=== PATIENT | female | born 2000 | race Caucasian/White ===

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

== ENCOUNTER 2020-08-19 17:24 | Inpatient (IN) | payer BC ==
[~2020-08-19] VITALS: Ht 154.9 cm; Wt 68.0 kg
[~2020-08-19 17:24] MED LIST changes: -OMNIPAQUE 350 MG/ML, 100ML BOTTLE ONE
--- NOTE | 2020-08-19 17:38 | NUR ---
PT AMBULATORY TO ROOM FROM TRIAGE, PT CHANGED INTO GOWN. CALL LIGHT WITHIN REACH
[2020-08-19] MEDS ORDERED: MORPHINE SULFATE 4 MG/ML, 1ML IVPush PRN (18:00)
[2020-08-19] MEDS ORDERED: MORPHINE SULFATE 4 MG/ML, 1ML ONE (18:00)
[2020-08-19] MEDS ORDERED: SODIUM CHLORIDE FLUSH 10ML SYR IVF ONE ×2 (18:00→18:30)
[2020-08-19] MEDS ORDERED: ONDANSETRON 2MG/ML, 2ML IVPush ONE (18:00)
[2020-08-19] MEDS ORDERED: ONDANSETRON 2MG/ML, 2ML ONE (18:00)
[2020-08-19] MEDS ORDERED: SODIUM CHLORIDE 0.9% 1,000ML IVBOLUS ONE (18:00)
[2020-08-19 18:09] LABS: BASOPHILS % (AUTO) 1 % (0-1); EOSINOPHILS % (AUTO) 3 % (1-7); LYMPHOCYTES % (AUTO) 17 % (22-44); MEAN CORPUSCULAR HGB CONC 33.1 g/dL (32.4-35.8); MEAN PLATELET VOLUME 9.5 fL (7.4-10.4); MONOCYTES % (AUTO) 7 % (2-9); NEUTROPHILS % (AUTO) 73 % (42-75); PLATELET COUNT 264 x10^3/uL (130-400); RED BLOOD COUNT 4.73 x10^6/uL (3.82-5.3); RED CELL DISTRIBUTION WIDTH 12.8 % (9.6-15.2)
[2020-08-19 18:17] LABS: MD NO
[2020-08-19 18:20] LABS: ALBUMIN 4.2 g/dL (3.4-5.0); CALCIUM 8.7 mg/dL (8.5-10.1); CHLORIDE 108 mmol/L (98-107)
[2020-08-19] MEDS ORDERED: hydrALAzine 20 MG/ML, 1ML IVPush PRN (18:30)
[2020-08-19] MEDS ORDERED: PROMETHAZINE 25 MG/ML, 1ML IM PRN (18:30)
[2020-08-19] MEDS ORDERED: ONDANSETRON ODT 4 MG PO PRN (18:30)
--- NOTE | 2020-08-19 18:35 | NUR ---
Pt to be admitted to SURGICAL, room 468. Report called to FABRICIO.
[2020-08-19 18:36] LABS: ALANINE AMINOTRANSFERASE 16 U/L (12-78); ALKALINE PHOSPHATASE 42 U/L (45-117); ANION GAP 7 mmol/L (5-15); BILIRUBIN,TOTAL 0.7 mg/dL (0.2-1.0); CREATININE 0.91 mg/dL (0.55-1.02); TOTAL PROTEIN 7.2 g/dL (6.4-8.2)
[2020-08-19 19:52] VITALS: BP 102/69
[2020-08-19] MEDS: D5%-0.9% NACL 1,000 ML IV SCH (20:12)
[2020-08-19] MEDS: morphine SULFATE 10 MG/ML, 1ML IVPush PRN ×2 (20:13→23:27)
[2020-08-19 22:19] VITALS: BP 102/69
[2020-08-19] MEDS ORDERED: FLUOXETINE 10 MG CAP PO ONE (23:30)
[2020-08-20 02:12] VITALS: BP 97/60
[2020-08-20] MEDS: D5%-0.9% NACL 1,000 ML IV SCH ×3 (03:44→23:11)
[2020-08-20] MEDS: morphine SULFATE 10 MG/ML, 1ML IVPush PRN ×5 (03:49→23:02)
[2020-08-20 04:31] LABS: MICROSCOPIC AUTO
[2020-08-20 05:05] LABS: BASOPHILS % (AUTO) 1 % (0-1); EOSINOPHILS % (AUTO) 5 % (1-7); LYMPHOCYTES % (AUTO) 35 % (22-44); MEAN CORPUSCULAR HEMOGLOBIN 29.9 pg (27.0-34.8); MEAN CORPUSCULAR HGB CONC 33.2 g/dL (32.4-35.8); MEAN PLATELET VOLUME 9.7 fL (7.4-10.4); MONOCYTES % (AUTO) 8 % (2-9); NEUTROPHILS % (AUTO) 52 % (42-75); PLATELET COUNT 196 x10^3/uL (130-400); RED BLOOD COUNT 3.89 x10^6/uL (3.82-5.3); RED CELL DISTRIBUTION WIDTH 13.1 % (9.6-15.2)
[2020-08-20 05:07] LABS: MD NO
[2020-08-20 05:21] LABS: CALCIUM 7.7 mg/dL (8.5-10.1); CHLORIDE 112 mmol/L (98-107)
[2020-08-20 05:33] LABS: ALANINE AMINOTRANSFERASE 9 U/L (12-78); ALBUMIN 3.1 g/dL (3.4-5.0); ALKALINE PHOSPHATASE 32 U/L (45-117); ANION GAP 4 mmol/L (5-15); BILIRUBIN,TOTAL 0.7 mg/dL (0.2-1.0); CHOL/HDL RATIO 3.1; CHOLESTEROL, TOTAL 105 mg/dL (140-239); CREATININE 0.62 mg/dL (0.55-1.02); HDL CHOL % 32 % (28-40); HDL CHOLESTEROL (DIRECT) 34 mg/dL (40-60); LDL CHOLESTEROL,CALCULATED 56 mg/dL (54-169); LDL/HDL RATIO 1.6 (0.5-3.0); TOTAL PROTEIN 5.4 g/dL (6.4-8.2); TRIGLYCERIDES 75 mg/dL (50-200); VLDL CHOLESTEROL 15 mg/dL (0-25)
[2020-08-20] MEDS: FLUOXETINE 10 MG CAP PO SCH (09:29)
[2020-08-20 09:48] VITALS: BP 97/66
[2020-08-20 12:14] VITALS: BP 92/61
[2020-08-20] MEDS: ONDANSETRON 2MG/ML, 2ML IVPush PRN ×2 (15:14→23:02)
[2020-08-20] MEDS: HEPARIN 5,000 UNITS/ML, 1ML SQ SCH (16:30)
[2020-08-20 19:04] VITALS: BP 108/65
[2020-08-21] MEDS: HEPARIN 5,000 UNITS/ML, 1ML SQ SCH ×3 (00:30→16:30)
[2020-08-21 01:42] VITALS: BP 85/40
[2020-08-21] MEDS: morphine SULFATE 10 MG/ML, 1ML IVPush PRN ×5 (06:18→20:33)
[2020-08-21] MEDS: D5%-0.9% NACL 1,000 ML IV SCH ×3 (06:21→16:49)
[2020-08-21 08:35] VITALS: BP 98/66
[2020-08-21] MEDS: FLUOXETINE 10 MG CAP PO SCH (08:35)
[2020-08-21 13:10] VITALS: BP 101/69
[2020-08-21] MEDS: METOCLOPRAMIDE 5 MG/ML, 2ML IVPush SCH ×2 (16:48→22:35)
[2020-08-21 20:25] VITALS: BP 96/60
[2020-08-21] MEDS: OXYcodone IR 5MG TABLET PO PRN (23:10)
[2020-08-22] MEDS: HEPARIN 5,000 UNITS/ML, 1ML SQ SCH ×2 (00:30→07:41)
[2020-08-22] MEDS: D5%-0.9% NACL 1,000 ML IV SCH ×2 (00:46→09:38)
[2020-08-22 02:08] VITALS: BP 91/60
[2020-08-22] MEDS: METOCLOPRAMIDE 5 MG/ML, 2ML IVPush SCH ×2 (04:45→09:47)
[2020-08-22] MEDS: ACETAMINOPHEN 325 MG TABLET PO PRN ×2 (04:49→13:08)
[2020-08-22] MEDS: OXYcodone IR 5MG TABLET PO PRN ×3 (04:49→16:11)
[2020-08-22 07:25] VITALS: BP 88/53
[2020-08-22] MEDS: FLUOXETINE 10 MG CAP PO SCH (07:29)
[2020-08-22 07:30] VITALS: BP 99/65
[2020-08-22 07:58] VITALS: BP 88/53
[2020-08-22] MEDS: MAGNESIUM HYDROXIDE 8%, 30ML UDC PO SCH ×2 (09:35→16:12)
[2020-08-22] MEDS: ONDANSETRON 2MG/ML, 2ML IVPush PRN (09:38)
[2020-08-22 13:23] VITALS: BP 98/65
[2020-08-22 16:13] VITALS: BP 104/68
== END 2020-08-22 16:55 | disposition home or self-care (01) | DRG 390 ==
LOC: ED 18:03 → EDIP 18:06 → 4NE 18:41 → DCLOUNGE 08-22 16:50
PROVIDERS: ADMIT Internal Medicine; ATTEND Family Medicine
DX: K56.1 Intussusception (principal); F12.10 Cannabis abuse, uncomplicated; F17.200 Nicotine dependence, unspecified, uncomplicated; F32.9 Major depressive disorder, single episode, unspecified; K56.609 Unspecified intestinal obstruction, unspecified as to partial versus complete obstruction; F41.9 Anxiety disorder, unspecified; M54.5 Low back pain; Z82.49 Family history of ischemic heart disease and other diseases of the circulatory system; Z87.11 Personal history of peptic ulcer disease
CPT/HCPCS: 36415; 74250; J7042; 80053; 80061; 81001; 83036; 83690; 83735; 84100; 84443; 84703; 85025; 87086; 96374; 96375; 99285; G0378; J2405; J2270; J2765; J7030

== ENCOUNTER → 2020-08-19 | Outpatient (CLI) | payer BC ==
[~2020-08-19] MED LIST changes: +OMNIPAQUE 350 MG/ML, 100ML BOTTLE ONE
== END | disposition home or self-care (01) ==
LOC: CFH 14:15
PROVIDERS: ATTEND Family Medicine
DX: K56.609 Unspecified intestinal obstruction, unspecified as to partial versus complete obstruction (principal); K56.1 Intussusception
CPT/HCPCS: 74177; Q9967